=== PATIENT | male | born 1990 | race Caucasian/White ===

== ENCOUNTER 2016-06-01 12:25 | Emergency (ER) | payer MEDICAID | END 2016-06-01 14:11 | disposition home or self-care (01) | LOC: D.ER 12:25 | DX: S93.401A Sprain of unspecified ligament of right ankle, initial encounter (principal); X58.XXXA Exposure to other specified factors, initial encounter; Y93.89 Activity, other specified; Y92.89 Other specified places as the place of occurrence of the external cause; S93.601A Unspecified sprain of right foot, initial encounter; S90.31XA Contusion of right foot, initial encounter; F17.200 Nicotine dependence, unspecified, uncomplicated ==

== ENCOUNTER 2016-08-01 12:49 | Emergency (ER) | payer MEDICAID | END 2016-08-01 14:40 | disposition home or self-care (01) | LOC: D.ER 12:49 | DX: S43.402A Unspecified sprain of left shoulder joint, initial encounter (principal); X58.XXXA Exposure to other specified factors, initial encounter; Y93.89 Activity, other specified; Y92.89 Other specified places as the place of occurrence of the external cause; F17.200 Nicotine dependence, unspecified, uncomplicated ==

== ENCOUNTER 2018-05-31 10:52 | Emergency (ER) | payer MEDICAID ==
[~2018-05-31] VITALS: Ht 177.8 cm; Wt 109.1 kg
[2018-05-31 10:56] VITALS: Ht 177.8 cm; Wt 109.1 kg
[2018-05-31] MEDS ORDERED: VOLTAREN75 MG PO (12:28)
[2018-05-31] MEDS ORDERED: OMEPRAZOLE20 M1 PO (12:28)
[2018-05-31 13:19] VITALS: BP 138/100
== END 2018-05-31 13:21 | disposition home or self-care (01) ==
LOC: D.ER 10:52
DX: S93.401A Sprain of unspecified ligament of right ankle, initial encounter (principal); W18.31XA Fall on same level due to stepping on an object, initial encounter; Y93.89 Activity, other specified; Y92.017 Garden or yard in single-family (private) house as the place of occurrence of the external cause; S96.911A Strain of unspecified muscle and tendon at ankle and foot level, right foot, initial encounter

== ENCOUNTER 2019-08-01 13:25 | Emergency (ER) | payer OTHER ==
[~2019-08-01] VITALS: Ht 177.8 cm; Wt 104.5 kg
[~2019-08-01 13:25] MED LIST: OMEPRAZOLE20 M1 PO; VOLTAREN75 MG PO
[2019-08-01 13:32] VITALS: BP 135/79; Ht 177.8 cm; Wt 104.5 kg
[2019-08-01] MEDS ORDERED: VOLTAREN75 MG PO (14:57)
== END 2019-08-01 15:55 | disposition home or self-care (01) ==
LOC: D.ER 13:25
DX: M25.561 Pain in right knee (principal); K21.9 Gastro-esophageal reflux disease without esophagitis

== ENCOUNTER 2019-10-26 05:19 | Day surgery (SDC) | payer OTHER ==
[~2019-10-26] VITALS: Ht 160 cm; Wt 108.9 kg
[2019-10-26 06:15] VITALS: BP 128/75; Ht 160 cm; Wt 108.9 kg
[2019-10-26] MEDS ORDERED: NORCO 7.5-3251 EACH (06:15)
--- NOTE | 2019-10-26 08:16 | NUR ---
CLEANED WITH BLUE TOWELS AND ALCOHOL BEFORE PREPPING. PINK PADS USED AROUND RIGHT LEG IN LEG STERLING
--- NOTE | 2019-10-26 10:21 | NUR ---
1015 IV D/C'D WITH CANNULA INTACT, PRESSURE HELD AND DRSG PLACED. DISCHARGE INSTRUCTIONS GIVEN. PT AND VERBALIZED AN UNDERSTANDING. DISCHARGED HOME IN STABLE CONDITION AND WITHUT C/0
--- NOTE | 2019-10-26 14:09 | OP ---
PATIENT NAME: ANA MARÍA DIXON JR MEDICAL RECORD: [id number] :88 LOCATION:[facility] ADMISSION DATE: SURGEON: KAYLAN CORTEZ MD DATE OF OPERATION: 10/26/2019 PREOPERATIVE DIAGNOSES: 1. Right knee pain. 2. Lateral meniscus tear. 3. Chondromalacia. POSTOPERATIVE DIAGNOSES: 1. Right knee pain. 2. Lateral meniscus tear. 3. Chondromalacia. PROCEDURE PERFORMED: Right knee scope with partial lateral meniscectomy, chondroplasty and limited synovectomy. INDICATIONS FOR THE PROCEDURE: Mr. Dixon is a 29-year-old male who injured his knee in July, has been having pains ever since. MRI showed evidence of increased signal in the lateral compartment, then at the lateral meniscus. We talked to him about options for continued conservative versus surgical management. He has elected to proceed with surgery for right knee arthroscopy. Risks, benefits and alternatives of surgery were discussed with the patient and consent was obtained. DESCRIPTION OF PROCEDURE: The patient was met in the holding area where his identity and confirmation of procedure was performed. The right lower extremity was marked. He was taken to the operating room where he was placed supine on the operating table. Anesthesia was administered. Tourniquet was applied to the right thigh and the right leg was prepped and draped in a sterile fashion. The patient received preoperative antibiotics and a timeout was performed before initiating the case. On the initiation of the case, leg was exsanguinated and the tourniquet was raised. Total tourniquet time was 29 minutes. Again with placement of our superior medial portal, inserted the cannula and filled the knee with fluid. We then placed our anterolateral portal, inserted the camera, placed our anterior medial portal under direct visualization. Diagnostic knee arthroscopy was then performed. Undersurface of the patella was in good condition. There was a small groove at the central trochlea with grade II chondromalacia. The medial and lateral gutters were clear. The medial compartment was in good condition. The ACL did appear to have a partial tear with some stretching of its fibers, but it was still attached at the lateral wall. Lateral compartment had peripheral tearing with horizontal cleavage tear of the meniscus through the body and posterior horn. There was grade I-II chondromalacia of the lateral femoral condyle and lateral tibial plateau. A biter and shaver were used to perform partial lateral meniscectomy. Before and after images were obtained. Chondroplasty was also performed at the lateral femoral condyle. We then moved to the patellofemoral compartment. Limited synovectomy was performed at the anterior tissues of the knee and infrapatellar fat pad. Chondroplasty was performed at the trochlea. This completed our procedure. Instruments were removed and fluid was drained from the knee. A 0.25% Marcaine with epinephrine was injected at the portal sites. These were then closed with nylon suture and a sterile dressing was placed. The patient was turned back over to anesthesia where he was awakened, extubated, and taken to recovery room in stable condition. OPERATIVE REPORT [id number] ANA MARÍA DIXON JR POSTOPERATIVE PLAN: The patient is going to return home with his family tonight. He can be weightbearing as tolerated on that leg, needs to avoid any strenuous activities for the next couple of weeks. He is to start physical therapy next week. We will see him back in clinic in 2 weeks. ANESTHESIA: General with peripheral nerve block. COMPLICATIONS: None. ESTIMATED BLOOD LOSS: 5 mL. TRANSINT:[id number] Voice Confirmation ID: [id number] DOCUMENT ID: [id number] KAYLAN CORTEZ MD at 1409 CC: [id number] DICTATION DATE: 10/26/1950 TENNIS DIRECTOR: 10/26/19 1217 [facility] 10/26/19 [facility] [address] [place] [address]
== END 2019-10-26 10:19 | disposition home or self-care (01) ==
LOC: D.OPS 05:19
PROVIDERS: ATTEND Orthopaedic Surgery
DX: M25.561 Pain in right knee (principal); S83.281A Other tear of lateral meniscus, current injury, right knee, initial encounter; X58.XXXA Exposure to other specified factors, initial encounter; M94.261 Chondromalacia, right knee